=== PATIENT | female | born 1945 | race Caucasian/White ===

== ENCOUNTER 2020-01-24 11:50 | Inpatient (IN) ==
[2020-01-24] MEDS ORDERED: Hyoscyamine SL 0.125 MG TAB.SUBL SL PRN (15:59)
[2020-01-24] MEDS ORDERED: Ondansetron 4 MG/2 ML VIAL IVP PRN (15:59)
[2020-01-24] MEDS ORDERED: *HR* FentaNYL PATCH 12 MCG PATCH TD SCH (16:00)
[2020-01-24] MEDS: Morphine Sulfate Oral CONC 10 MG/0.5 ML ORAL.SYG PO PRN (18:00)
[2020-01-24] MEDS ORDERED: Ondansetron ODT 4 MG TAB.RAPDIS SL PRN (18:57)
[2020-01-24 19:32] LABS: Adenovirus Not Detected (Not Detect); Bordetella Pertussis Not Detected (Not Detect); Chlamydophila pneumoniae Not Detected (Not Detect); Coronavirus 229E Not Detected (Not Detect); Coronavirus HKU1 Not Detected (Not Detect); Coronavirus NL63 Not Detected (Not Detect); Coronavirus OC43 Not Detected (Not Detect); Human Metapneumovirus Not Detected (Not Detect); Human Rhinovirus/Enterovirus DETECTED (Not Detect); Influenza A Subtype 2009 H1 Not Detected (Not Detect); Influenza B Not Detected (Not Detect); Mycoplasma pneumoniae Not Detected (Not Detect); Parainfluenza Virus 1 Not Detected (Not Detect); Parainfluenza Virus 2 Not Detected (Not Detect); Parainfluenza Virus 3 Not Detected (Not Detect); Parainfluenza Virus 4 Not Detected (Not Detect); Respiratory Syncytial Virus Not Detected (Not Detect); SARS-CoV-2 Not Detected (Not Detect)
[2020-01-25] MEDS: Morphine Sulfate Oral CONC 10 MG/0.5 ML ORAL.SYG PO PRN (04:00)
[2020-01-25] MEDS: Haloperidol Oral Conc 10 MG/5 ML UDC PO PRN ×2 (04:29→09:15)
[2020-01-25] MEDS ORDERED: *HR* LORazepam 1 MG TABLET PO PRN (11:09)
[2020-01-25] MEDS: Mag Hydrox/Al Hydrox/Simeth 30 ML UDC PO PRN (11:35)
[2020-01-25 14:52] LABS: Bilirubin,Urine Negative (Negative); Blood,Urine Moderate (Negative); Clarity,Urine Clear (Clear); Color,Urine Yellow (Yellow); Glucose,Urine (UA) 250 mg/dL (Normal); Ketones,Urine 40 mg/dL (Negative); Leukocyte Esterase,Urine Small (Negative); Nitrite,Urine Positive (Negative); PH,Urine 5.5 pH Units (5.0-8.0); Protein,Urine 100 mg/dL (Neg-Trace); Specific Gravity,Urine >= 1.030 (1.010-1.025); Urobilinogen,Urine Normal (Normal)
[2020-01-25 15:57] LABS: RBC,Urine 15-30 per hpf (0-3); WBC,Urine TNTC per hpf (0-3)
[2020-01-25] MEDS: Haloperidol Oral Conc 10 MG/5 ML UDC PO SCH (17:55)
[2020-01-25] MEDS: *HR* LORazepam Oral Conc 2 MG/ML SL PRN ×2 (18:59→22:59)
[2020-01-25] MEDS: Acetaminophen 650 MG RECTAL SUPP RC PRN (19:54)
[2020-01-26] MEDS: Haloperidol Oral Conc 10 MG/5 ML UDC PO SCH ×4 (00:28→23:41)
[2020-01-26] MEDS: levoFLOXacin 750 MG TABLET PO SCH (11:05)
[2020-01-26] MEDS: Morphine Sulfate Oral CONC 10 MG/0.5 ML ORAL.SYG PO PRN (11:05)
[2020-01-26] MEDS: *HR* LORazepam Oral Conc 2 MG/ML SL PRN ×2 (14:37→22:42)
[2020-01-26] MEDS: Mag Hydrox/Al Hydrox/Simeth 30 ML UDC PO PRN (18:42)
[2020-01-27] MEDS: *HR* LORazepam Oral Conc 2 MG/ML SL PRN ×3 (03:06→13:47)
[2020-01-27] MEDS: levoFLOXacin 750 MG TABLET PO SCH (09:19)
[2020-01-27] MEDS: Haloperidol Oral Conc 10 MG/5 ML UDC PO SCH ×2 (09:19→15:29)
[2020-01-27] MEDS: Morphine Sulfate Oral CONC 10 MG/0.5 ML ORAL.SYG PO PRN ×2 (09:22→15:30)
[2020-01-27] MEDS ORDERED: *HR* FentaNYL PATCH 25 MCG PATCH TD SCH (14:00)
[2020-01-27] MEDS: *HR* FentaNYL PATCH 25 MCG PATCH TD SCH (15:33)
[2020-01-28] MEDS: Haloperidol Oral Conc 10 MG/5 ML UDC PO SCH ×3 (00:06→14:54)
[2020-01-28] MEDS: Morphine Sulfate Oral CONC 10 MG/0.5 ML ORAL.SYG PO PRN ×4 (00:53→21:45)
[2020-01-28] MEDS: levoFLOXacin 750 MG TABLET PO SCH (08:00)
[2020-01-28] MEDS: *HR* LORazepam Oral Conc 2 MG/ML SL PRN ×5 (08:01→21:45)
[2020-01-28] MEDS: Acetaminophen 650 MG RECTAL SUPP RC PRN (20:08)
[2020-01-29] MEDS: Haloperidol Oral Conc 10 MG/5 ML UDC PO SCH ×3 (01:16→15:06)
[2020-01-29] MEDS: Morphine Sulfate Oral CONC 10 MG/0.5 ML ORAL.SYG PO PRN ×3 (05:46→15:06)
[2020-01-29] MEDS: *HR* LORazepam Oral Conc 2 MG/ML SL PRN ×6 (05:46→21:34)
[2020-01-29] MEDS: levoFLOXacin 750 MG TABLET PO SCH (08:08)
[2020-01-29 18:12] LABS: Basophils % 0.2 %; Eosinophils # 0.2 K/mcL (0.0-0.6); Eosinophils % 4.6 %; Hematocrit 33.2 % (35.3-44.9); Hemoglobin 11.3 g/dL (11.5-15.4); Immature Granulocytes % 0.4 % (0-4); Lymphocytes # 0.4 K/mcL (0.6-4.6); Lymphocytes % 8.8 %; Mean Corpuscular Hemoglobin 29.5 pg (28.0-33.3); Mean Corpuscular Volume 86.7 fL (83.0-100.0); Mean Platelet Volume 9.6 fL (9.4-12.4); Monocytes # 0.6 K/mcL (0.0-1.3); Monocytes % 12.2 %; Neutrophils # 3.5 K/mcL (1.6-8.9); Platelet Count 255 K/mcL (140-400); Red Blood Count 3.83 M/mcL (3.82-4.97); Red Cell Distribution Width 15.6 % (11.5-14.5); Segmented Neutrophils % 73.8 %; White Blood Count 4.8 K/mcL (4.3-11.1)
[2020-01-29 18:24] LABS: Alanine Aminotransferase 23 Units/L (7-52); Albumin 2.9 g/dL (3.5-5.7); Albumin/Globulin Ratio 1.2 (1.1-2.2); Alkaline Phosphatase 157 Units/L (34-104); Aspartate Amino Transferase 32 Units/L (13-39); BUN/Creatinine Ratio 23 (6-26); Bilirubin,Total 1.5 mg/dL (0.3-1.0); Blood Urea Nitrogen 23 mg/dL (8-23); Calcium 8.9 mg/dL (8.6-10.3); Carbon Dioxide 33 mEq/L (23-29); Chloride 92 mEq/L (98-107); Globulin 2.4 g/dL (2.4-3.5); Glucose 108 mg/dL (70-105); Magnesium 1.2 mg/dL (1.6-2.6); Osmolality,Calculated 284 (280-300); Potassium 3.1 mEq/L (3.5-5.1); Sodium 135 mEq/L (136-145); Total Protein 5.3 g/dL (6.4-8.9); eGFR For African Americans > 60 (> 60); eGFR For Non-African Americans 55 (> 60)
[2020-01-29] MEDS: 0.9 % Sodium Chloride 1,000 ML IVC SCH (18:55)
[2020-01-30] MEDS: Haloperidol Oral Conc 10 MG/5 ML UDC PO SCH ×3 (01:22→15:20)
[2020-01-30] MEDS: *HR* LORazepam Oral Conc 2 MG/ML SL PRN ×2 (05:00→11:44)
[2020-01-30] MEDS: 0.9 % Sodium Chloride 1,000 ML IVC SCH (08:49)
[2020-01-30] MEDS ORDERED: levoFLOXacin 750 MG/150 ML 750 MG/150 ML BAG IVPB SCH (09:00)
[2020-01-30] MEDS: 0.9 % Sodium Chloride w KCl 20 MEQ/1,000 ML MLS IVC SCH ×2 (09:46→22:26)
[2020-01-30] MEDS: Morphine Sulfate Oral CONC 10 MG/0.5 ML ORAL.SYG PO PRN (14:05)
[2020-01-30] MEDS: *HR* FentaNYL PATCH 25 MCG PATCH TD SCH (15:23)
[2020-01-31] MEDS: Haloperidol Oral Conc 10 MG/5 ML UDC PO SCH ×4 (00:33→23:55)
[2020-01-31] MEDS: *HR* LORazepam Oral Conc 2 MG/ML SL PRN ×5 (03:17→13:41)
[2020-01-31] MEDS: 0.9 % Sodium Chloride w KCl 20 MEQ/1,000 ML MLS IVC SCH (08:35)
[2020-01-31] MEDS: Morphine Sulfate Oral CONC 10 MG/0.5 ML ORAL.SYG PO PRN ×2 (09:57→14:28)
[2020-01-31 16:49] LABS: Basophils % 0.2 %; Eosinophils # 0.1 K/mcL (0.0-0.6); Hematocrit 31.4 % (35.3-44.9); Hemoglobin 10.7 g/dL (11.5-15.4); Immature Granulocytes % 0.4 % (0-4); Lymphocytes # 0.5 K/mcL (0.6-4.6); Mean Corpuscular HGB Conc 34.1 g/dL (31.6-35.5); Mean Corpuscular Hemoglobin 29.2 pg (28.0-33.3); Mean Corpuscular Volume 85.8 fL (83.0-100.0); Mean Platelet Volume 9.3 fL (9.4-12.4); Monocytes # 0.7 K/mcL (0.0-1.3); Monocytes % 13.8 %; Neutrophils # 3.8 K/mcL (1.6-8.9); Platelet Count 316 K/mcL (140-400); Red Blood Count 3.66 M/mcL (3.82-4.97); Red Cell Distribution Width 15.6 % (11.5-14.5); Segmented Neutrophils % 74.6 %; White Blood Count 5.1 K/mcL (4.3-11.1)
[2020-01-31 16:58] LABS: BUN/Creatinine Ratio 30 (6-26); Blood Urea Nitrogen 22 mg/dL (8-23); Calcium 8.4 mg/dL (8.6-10.3); Carbon Dioxide 25 mEq/L (23-29); Chloride 102 mEq/L (98-107); Glucose 125 mg/dL (70-105); Magnesium 1.6 mg/dL (1.6-2.6); Osmolality,Calculated 287 (280-300); Potassium 3.9 mEq/L (3.5-5.1); Sodium 136 mEq/L (136-145); eGFR For African Americans > 60 (> 60); eGFR For Non-African Americans > 60 (> 60)
[2020-02-01] MEDS: *HR* LORazepam Oral Conc 2 MG/ML SL PRN ×3 (05:50→20:55)
[2020-02-01] MEDS ORDERED: levoFLOXacin 750 MG/150 ML 750 MG/150 ML BAG IVPB SCH (09:00)
[2020-02-01] MEDS ORDERED: *HR* FentaNYL PATCH 50 MCG PATCH TD SCH (09:00)
[2020-02-01] MEDS: Haloperidol Oral Conc 10 MG/5 ML UDC PO SCH ×2 (09:51→16:25)
[2020-02-01] MEDS: Morphine Sulfate Oral CONC 10 MG/0.5 ML ORAL.SYG PO PRN ×2 (11:33→17:59)
[2020-02-01 18:33] VITALS: BP 129/75
[2020-02-02] MEDS: Haloperidol Oral Conc 10 MG/5 ML UDC PO SCH ×2 (08:09)
[2020-02-02] MEDS: Morphine Sulfate Oral CONC 10 MG/0.5 ML ORAL.SYG PO PRN (09:55)
== END 2020-02-02 11:16 | disposition hospice, home (50) | DRG 690 ==
LOC: INPGRE 14:47
PROVIDERS: ADMIT Family Medicine; ATTEND Family Medicine